=== PATIENT | female | born 1970 | race Native Hawaiian/Other Pacific Islander ===

== ENCOUNTER 2016-09-07 14:09 | Emergency (ER) | payer OTHER ==
[~2016-09-07] VITALS: Ht 167.6 cm; Wt 65.8 kg
[2016-09-07 14:18] VITALS: TEMP 98.1
[2016-09-07 14:57] LABS: PLATELET COUNT 289 K/uL (152-353)
[2016-09-07 15:06] LABS: POTASSIUM 3.6 mmol/L (3.6-5.2); SODIUM 138 mmol/L (136-145)
[2016-09-07 15:19] VITALS: BP 115/72
== END 2016-09-07 15:31 | disposition home or self-care (01) ==
LOC: ED 14:09
PROVIDERS: Emergency Medicine
DX: J20.9 Acute bronchitis, unspecified (principal); M79.1 Myalgia
CPT/HCPCS: 36415; 80053; 85027; 99283